=== PATIENT | female | born 1995 | race Two or more races ===

== ENCOUNTER 2018-08-10 21:05 | Emergency (ER) | payer MEDICAID ==
[~2018-08-10] VITALS: Ht 160 cm; Wt 62.6 kg
[2018-08-10 21:22] VITALS: BP 154/94
[2018-08-10] MEDS ORDERED: Metoclopramide 10mg/2ml Inj IVP ONE (21:45)
[2018-08-10] MEDS ORDERED: Meclizine 25mg tab ORAL ONE (21:45)
[2018-08-10 22:29] LABS: APPEARANCE,URINE CLEAR; BILIRUBIN, URINE NEGATIVE (NEGATIVE); COLOR,URINE PALE YELLOW; GLUCOSE, URINE (UA) NEGATIVE (NEGATIVE); KETONES,URINE NEGATIVE (NEGATIVE); LEUKOCYTE ESTERASE ,URINE NEGATIVE (NEGATIVE); NITRITE,URINE NEGATIVE (NEGATIVE); PH,URINE 6.5 (4.5-8.0); PROTEIN,URINE NEGATIVE (NEGATIVE); UROBILINOGEN,URINE NORMAL MG/DL (0.0-1.0)
[2018-08-10 22:46] LABS: BASOPHILS % (AUTO) 1.2 % (0.0-2.0); HEMATOCRIT 39.9 % (37.0-47.0); HEMOGLOBIN 13.3 G/DL (12.0-16.0); LYMPHOCYTES % (AUTO) 29.4 % (20.0-45.0); MEAN CORPUSCULAR VOLUME 81 FL (80-99); MONOCYTES % (AUTO) 6.1 % (1.0-10.0); NEUTROPHILS % (AUTO) 62.5 % (45.0-75.0); PLATELET COUNT 269 K/UL (150-450); RED BLOOD COUNT 4.93 M/UL (4.20-5.40); RED CELL DISTRIBUTION WIDTH 14.7 % (11.6-14.8); WHITE BLOOD COUNT 11.1 K/UL (4.8-10.8)
[2018-08-10 22:47] VITALS: BP 110/65
[2018-08-10 22:49] LABS: ALANINE AMINOTRANSFERASE 27 U/L (12-78); ALBUMIN 4.2 G/DL (3.4-5.0); ALKALINE PHOSPHATASE 69 U/L (46-116); ASPARTATE AMINO TRANSFERASE 15 U/L (15-37); BILIRUBIN,TOTAL 0.2 MG/DL (0.2-1.0); BLOOD UREA NITROGEN 10 mg/dL (7-18); CALCIUM 9.5 MG/DL (8.5-10.1); CHLORIDE 104 MMOL/L (98-107); CREATININE 0.8 MG/DL (0.55-1.30); POTASSIUM 3.7 MMOL/L (3.5-5.1); SODIUM 140 MMOL/L (136-145)
[2018-08-10 22:55] LABS: CARBON DIOXIDE 27 MMOL/L (21-32)
[2018-08-10] MEDS ORDERED: MECLIZINE HCL25 MG ORAL (23:11)
[2018-08-10] MEDS ORDERED: REGLAN10 MG ORAL (23:11)
[2018-08-10 23:26] VITALS: BP 121/80
--- NOTE | 2018-08-11 00:08 | Emergency Room Report ---
History of Present Illness General Chief Complaint: Dizziness Source: Patient Present Illness HPI 22-year-old female presents ED for evaluation. Complaining of dizziness which started tonight. Described as room spinning sensation, worse with sudden head movement. Denies headache. Denies nausea or vomiting. Patient states that there is a family history of vertigo. Denies alcohol or drug use. No other aggravating or relieving factors. Denies any other associated symptoms Allergies: Coded Allergies: No Known Allergies (Unverified , 08/10/18) Patient History Past Medical History: none Past Surgical History: none Pertinent Family History: none Social History: Denies: smoking, alcohol use, drug use Last Menstrual Period: Jul 20, 2018 Now: No Immunizations: UTD Reviewed Nursing Documentation: PMH: Agreed; PSxH: Agreed Nursing Documentation-PMH Past Medical History: No History, Except For Review of Systems All Other Systems: negative except mentioned in HPI Physical Exam Vital Signs Date Time Temp Pulse Resp B/P (MAP) Pulse Ox O2 Delivery O2 Flow Rate FiO2 08/10/18 21:08 98.4 99 16 154/94 100 Room Air 98.4 08/10/18 23:26 99 Sp02 EP Interpretation: reviewed, normal General Appearance: no apparent distress, alert, GCS 15, non-toxic Head: normocephalic, atraumatic Eyes: bilateral eye normal inspection, bilateral eye PERRL ENT: hearing grossly normal, normal pharynx, no angioedema, normal voice Neck: full range of motion, supple/symm/no masses Respiratory: chest non-tender, lungs clear, normal breath sounds, speaking full sentences Cardiovascular #1: regular rate, rhythm, no edema Cardiovascular #2: 2+ carotid (R), 2+ carotid (L), 2+ radial (R), 2+ radial (L) , 2+ dorsalis pedis (R), 2+ dorsalis pedis (L) Gastrointestinal: normal bowel sounds, non tender, soft, non-distended, no guarding, no rebound Rectal: deferred Genitourinary: normal inspection, no CVA tenderness Musculoskeletal: back normal, gait/station normal, normal range of motion, non- tender Neurologic: alert, oriented x3, responsive, motor strength/tone normal, sensory intact, speech normal Psychiatric: judgement/insight normal, memory normal, mood/affect normal, no suicidal/homicidal ideation Reflexes: 3+ bicep (R), 3+ bicep (L), 3+ tricep (R), 3+ tricep (L), 3+ knee (R) , 3+ knee (L) Skin: normal color, no rash, warm/dry, well hydrated Lymphatic: no adenopathy Medical Decision Making Diagnostic Impression: Primary Impression: Benign positional vertigo Qualified Codes: H81.10 - Benign paroxysmal vertigo, unspecified ear ER Course Hospital Course 22-year-old female presents ED complaining of room spinning sensation Differential diagnoses include: arrythmia, dehydration, vertigo, UTI, substance abuse Clinical course Patient placed on stretcher. on cardiac rn. After initial history and physical I ordered labs, EKG, IVFs, meclizine, reglan labs reviewed- no leukocytosis, hemoglobin/hematocrit stable, electrolytes okay , UA negative, UDS negative EKG - sinus tachycardia, no acute ischemic changes interpreted by me Upon reassessment patient states his symptoms have improved. Clinical findings consistent with vertigo. Discussed findings with patient, family. Safe for discharge with close outpatient follow-up I. I feel this is a highly complex case requiring extensive working including EKG/Rhythm strip, Xray/CT/US, Blood/urine lab work, repeat exams while in ED, and administration of strong opiates/narcotics for pain control, admission to hospital or close patient follow up. Diagnosis - benign positional vertigo stable and discharged to home with prescription for meclizine, reglan. Followup with PMD. Return to ED if symptoms recur or worsen Labs Test 08/10/18 22:15 White Blood Count 11.1 K/UL (4.8-10.8) Red Blood Count 4.93 M/UL (4.20-5.40) Hemoglobin 13.3 G/DL (12.0-16.0) Hematocrit 39.9 % (37.0-47.0) Mean Corpuscular Volume 81 FL (80-99) Mean Corpuscular Hemoglobin 26.9 PG (27.0-31.0) Mean Corpuscular Hemoglobin Concent 33.2 G/DL (32.0-36.0) Red Cell Distribution Width 14.7 % (11.6-14.8) Platelet Count 269 K/UL (150-450) Mean Platelet Volume 9.4 FL (6.5-10.1) Neutrophils (%) (Auto) 62.5 % (45.0-75.0) Lymphocytes (%) (Auto) 29.4 % (20.0-45.0) Monocytes (%) (Auto) 6.1 % (1.0-10.0) Eosinophils (%) (Auto) 1.0 % (0.0-3.0) Basophils (%) (Auto) 1.2 % (0.0-2.0) Urine Color Pale yellow Urine Appearance Clear Urine pH 6.5 (4.5-8.0) Urine Specific [place] 1.010 (1.005-1.035) Urine Protein Negative (NEGATIVE) Urine Glucose (UA) Negative (NEGATIVE) Urine Ketones Negative (NEGATIVE) Urine Blood Negative (NEGATIVE) Urine Nitrite Negative (NEGATIVE) Urine Bilirubin Negative (NEGATIVE) Urine Urobilinogen Normal MG/DL (0.0-1.0) Urine Leukocyte Esterase Negative (NEGATIVE) Urine HCG, Qualitative Negative (NEGATIVE) Sodium Level 140 MMOL/L (136-145) Potassium Level 3.7 MMOL/L (3.5-5.1) Chloride Level 104 MMOL/L (98-107) Carbon Dioxide Level 27 MMOL/L (21-32) Blood Urea Nitrogen 10 mg/dL (7-18) Creatinine 0.8 MG/DL (0.55-1.30) Estimat Glomerular Filtration Rate > 60 mL/min (>60) Glucose Level 116 MG/DL (74-106) Calcium Level 9.5 MG/DL (8.5-10.1) Total Bilirubin 0.2 MG/DL (0.2-1.0) Aspartate Amino Transf (AST/SGOT) 15 U/L (15-37) Alanine Aminotransferase (ALT/SGPT) 27 U/L (12-78) Alkaline Phosphatase 69 U/L (46-116) Total Protein 8.2 G/DL (6.4-8.2) Albumin 4.2 G/DL (3.4-5.0) Globulin 4.0 g/dL Albumin/Globulin Ratio 1.0 (1.0-2.7) Urine Opiates Screen Negative (NEGATIVE) Urine Barbiturates Screen Negative (NEGATIVE) Phencyclidine (PCP) Screen Negative (NEGATIVE) Urine Amphetamines Screen Negative (NEGATIVE) Urine Benzodiazepines Screen Negative (NEGATIVE) Urine Cocaine Screen Negative (NEGATIVE) Urine Marijuana (THC) Screen Negative (NEGATIVE) EKG Diagnostic Results Rate: tachycardiac Rhythm: NSR ST Segments: no acute changes ASA given to the pt in ED: No Rhythm Strip Diag. Results EP Interpretation: yes Rhythm: NSR, no PVC's, no ectopy Last Vital Signs Date Time Temp Pulse Resp B/P (MAP) Pulse Ox O2 Delivery O2 Flow Rate FiO2 08/10/18 23:26 97.8 89 16 121/80 99 Room Air 99 Status: improved Disposition: HOME, SELF-CARE Condition: Stable Scripts Metoclopramide Hcl* (REGLAN*) 10 Mg Tablet 10 MG ORAL THREE TIMES A DAY, #20 TAB Prov: Peter Alfaro MD 08/10/18 Meclizine Hcl* (MECLIZINE*) 25 Mg Tablet 25 MG ORAL THREE TIMES A DAY, #20 TAB Prov: Peter Alfaro MD 08/10/18 Patient Instructions: Benign Positional Vertigo Peter Alfaro MD Aug 11, 2018 00:08
--- NOTE | 2018-08-11 14:49 | Cardiology Report ---
APPROVED REPORT EKG Measurement Heart [id number] Sinus tachycardia Possible Left atrial enlargement Borderline ECG
== END 2018-08-10 23:29 | disposition home or self-care (01) ==
LOC: EMR 22:13
DX: H81.10 Benign paroxysmal vertigo, unspecified ear (principal)
CPT/HCPCS: 36415; 80053; 80307; 81003; 81025; 85025; 93005; 96361; 96374; 99284; J2765

== ENCOUNTER 2019-07-29 17:48 | Emergency (ER) | payer MEDICAID ==
[~2019-07-29] VITALS: Ht 160 cm; Wt 70.3 kg
[~2019-07-29 17:48] MED LIST: MECLIZINE HCL25 MG ORAL; REGLAN10 MG ORAL
[2019-07-29] MEDS ORDERED: NKM (17:58)
--- NOTE | 2019-07-29 18:02 | NUR ---
ED Nurse Note: PT WALKED IN TO ER TODAY FROM HOME. AOX4. PT C/O PALPITATIONS AND FAST HEART RATE X 3 DAYS AGO. PT DENIES ANY MEDICAL HISTORY, DRUG OR ALCOHOL USE. PT STATES SHE HAS NOT DONE ANYTHING OUT OF THE ORDINARY AND DENIES ANY ANXIETY. PT DENIES CHEST PAIN OR SOB. AT BEDSIDE, PT IS CALM, COOPERATIVE, AND ANSWERING QUESTIONS APPROPRIATELY. HR 109 WITH BP 137/91. SINUS TACHYCARDIA ON MONITOR. DR HUERTAS AWARE.
[2019-07-29 18:03] VITALS: BP 137/91
[2019-07-29 18:27] LABS: APPEARANCE,URINE CLEAR; BILIRUBIN, URINE NEGATIVE (NEGATIVE); COLOR,URINE PALE YELLOW; GLUCOSE, URINE (UA) NEGATIVE (NEGATIVE); KETONES,URINE 3+ (NEGATIVE); LEUKOCYTE ESTERASE ,URINE 2+ (NEGATIVE); NITRITE,URINE NEGATIVE (NEGATIVE); PH,URINE 7 (4.5-8.0); PROTEIN,URINE NEGATIVE (NEGATIVE); UROBILINOGEN,URINE NORMAL MG/DL (0.0-1.0)
[2019-07-29 18:33] LABS: BASOPHILS % (AUTO) 1.3 % (0.0-2.0); EOSINOPHILS % (AUTO) 0.8 % (0.0-3.0); HEMATOCRIT 40.1 % (37.0-47.0); HEMOGLOBIN 13.1 G/DL (12.0-16.0); LYMPHOCYTES % (AUTO) 27.8 % (20.0-45.0); MEAN CORPUSCULAR VOLUME 82 FL (80-99); MONOCYTES % (AUTO) 6.2 % (1.0-10.0); NEUTROPHILS % (AUTO) 63.8 % (45.0-75.0); PLATELET COUNT 261 K/UL (150-450); RED BLOOD COUNT 4.89 M/UL (4.20-5.40); RED CELL DISTRIBUTION WIDTH 13.5 % (11.6-14.8); WHITE BLOOD COUNT 9.8 K/UL (4.8-10.8)
[2019-07-29 18:49] LABS: ANION GAP 12 mmol/L (5-15); BLOOD UREA NITROGEN 10 mg/dL (7-18); CALCIUM 9.3 MG/DL (8.5-10.1); CARBON DIOXIDE 25 MMOL/L (21-32); CHLORIDE 105 MMOL/L (98-107); CREATININE 0.9 MG/DL (0.55-1.30); POTASSIUM 3.7 MMOL/L (3.5-5.1); SODIUM 142 MMOL/L (136-145)
[2019-07-29 18:54] LABS: ALANINE AMINOTRANSFERASE 25 U/L (12-78); ALBUMIN 4.1 G/DL (3.4-5.0); ALBUMIN/GLOBULIN RATIO 1.1 (1.0-2.7); ALKALINE PHOSPHATASE 60 U/L (46-116); ASPARTATE AMINO TRANSFERASE 20 U/L (15-37); BILIRUBIN,TOTAL 0.3 MG/DL (0.2-1.0)
[2019-07-29 19:01] VITALS: BP 131/87
--- NOTE | 2019-07-29 19:02 | NUR ---
HAND-OFF: REPORT GIVEN TO PATRICIA BARRETT.
--- NOTE | 2019-07-29 19:07 | Emergency Room Report ---
History of Present Illness General Chief Complaint: Palpitations Source: Patient Present Illness HPI 23-year-old female with history of anxiety here complaining of 3 days of intermittent palpitations. Patient reports that she was standing in line to forward her pain that her palpitations started. However reports that she is very active denies calf swelling and tenderness. Denies chest pain shortness of breath. Denies abdominal pain nausea vomiting. Reports that her palpitations get worse as she lays down and feels acidity coming up her throat. Patient reports that this past weekend she consumes a lot of spicy and acidic food as well as more than usual number of alcoholic beverages. Denies smoking tobacco and drug use. Denies dizziness and headache, vision changes, reports that she is beginning to get her usual migraine headache which Excedrin is helping. Patient reports that she consumes 1 cup of coffee every day. Denies urinary symptoms, hematuria, constipation diarrhea, blood in her stool. Denies recent URI symptoms. Patient reports that she recently traveled to [place] however denies sick contact reports that she has history of anxiety however denies any medication intake in the past. Denies suicidal and homicidal ideation. Reports that her sleep and appetite is good. Denies visual and auditory hallucinations, mood swings, impulsivity, grandiosity, and other associated symptoms.LMP 3 wks ago, regular, denying sexual activity. Allergies: Coded Allergies: No Known Allergies (Unverified , 08/10/18) Patient History Past Medical History: see triage record Past Surgical History: unable to obtain Pertinent Family History: none Last Menstrual Period: 07/09/2019 Now: No Immunizations: UTD Reviewed Nursing Documentation: PMH: Agreed; PSxH: Agreed Nursing Documentation-PM Past Medical History: No Stated History Review of Systems All Other Systems: negative except mentioned in HPI Physical Exam Vital Signs Date Time Temp Pulse Resp B/P (MAP) Pulse Ox O2 Delivery O2 Flow Rate FiO2 07/29/19 17:59 98.8 110 18 159/91 (113) 99 Room Air Sp02 EP Interpretation: reviewed, normal General Appearance: no apparent distress, alert, GCS 15, non-toxic Head: normocephalic, atraumatic Eyes: bilateral eye normal inspection, bilateral eye PERRL ENT: hearing grossly normal, normal pharynx, no angioedema, normal voice Neck: full range of motion, supple/symm/no masses Respiratory: chest non-tender, lungs clear, normal breath sounds, no rhonchi, no accessory muscle use, no wheezing, speaking full sentences Cardiovascular #1: regular rate, rhythm, no edema, no murmur, normal capillary refill Cardiovascular #2: 2+ carotid (R), 2+ carotid (L), 2+ radial (R), 2+ radial (L) , 2+ dorsalis pedis (R), 2+ dorsalis pedis (L) Gastrointestinal: normal bowel sounds, non tender, soft, non-distended, no guarding, no rebound Rectal: deferred Genitourinary: normal inspection, no CVA tenderness Musculoskeletal: back normal, gait/station normal, normal range of motion, non- tender, no calf tenderness Neurologic: alert, oriented x3, responsive, motor strength/tone normal, sensory intact, speech normal Psychiatric: judgement/insight normal, memory normal, mood/affect normal, no suicidal/homicidal ideation Skin: no rash Lymphatic: normal inspection, no adenopathy Medical Decision Making PA Attestation All diagnoses and treatment plans were reviewed and discussed with my supervising physician Dr. Del Angel Diagnostic Impression: Primary Impression: Palpitations Additional Impressions: GERD (gastroesophageal reflux disease) Anxiety, generalized UTI (urinary tract infection) ER Course 23-year-old female with history of anxiety here complaining of 3 days of intermittent palpitations. Patient reports that she was standing in line to forward her pain that her palpitations started. However reports that she is very active denies calf swelling and tenderness. Denies chest pain shortness of breath. Denies abdominal pain nausea vomiting. Reports that her palpitations get worse as she lays down and feels acidity coming up her throat. Patient reports that this past weekend she consumes a lot of spicy and acidic food as well as more than usual number of alcoholic beverages. Denies smoking tobacco and drug use. Denies dizziness and headache, vision changes, reports that she is beginning to get her usual migraine headache which Excedrin is helping. Patient reports that she consumes 1 cup of coffee every day. Denies urinary symptoms, hematuria, constipation diarrhea, blood in her stool. Denies recent URI symptoms. Patient reports that she recently traveled to [place] however denies sick contact reports that she has history of anxiety however denies any medication intake in the past. Denies suicidal and homicidal ideation. Reports that her sleep and appetite is good. Denies visual and auditory hallucinations, mood swings, impulsivity, grandiosity, and other associated symptoms.LMP 3 wks ago, regular, denying sexual activity. Ddx considered but are not limited to: generalized anxiety disorder, panic attack, depression with psychotic feature, bipolar disorder, drug overdose, GERD , gastritis, palpitations unspecified, incidental UTI Vital signs: are WNL, pt. is afebrile H&PE are most consistent with: GERD, anxiety, palpitation, incidental UTI ORDERS: chest pain work up, omeprazole, Macrobid ED INTERVENTIONS: NS bolus, pepcid, zofran DISCHARGE: At this time pt. is stable for d/c to home. Will provide printed patient care instructions, and any necessary prescriptions. Care plan and follow up instructions have been discussed with the patient prior to discharge. Advised the patient to follow-up with her primary care provider for management of palpitations and anxiety also follow-up with quality compliance consultant for possible Echo, possible valve abnormality also if worsening symptoms return to the emergency room avoid eating spicy and acidic food EKG Diagnostic Results Rate: tachycardiac ST Segments: no acute changes Other Impression No acute ST changes Chest X-Ray Diagnostic Results Chest X-Ray Diagnostic Results : Chest X-Ray Ordered: Yes # of Views/Limited/Complete: 1 View Indication: Other EP Interpretation: Yes [place] Xray: Interpretation reviewed, by supervising MD, and agrees with findings. Interpretation: no consolidation, no effusion, no pneumothorax Impression: No acute disease Electronically Signed by: Ayaka Tavarez PA-C Last Vital Signs Date Time Temp Pulse Resp B/P (MAP) Pulse Ox O2 Delivery O2 Flow Rate FiO2 07/29/19 19:01 98.4 96 17 131/87 100 Room Air Disposition: HOME, SELF-CARE Condition: Stable Scripts Nitrofurantoin Monohyd/M-Cryst* (MACROBID 100 MG*) 100 Mg Capsule 100 MG ORAL EVERY 12 HOURS for 7 Days, #14 CAP Prov: Ayaka Camargo 07/29/19 Omeprazole (OMEPRAZOLE) 20 Mg Tablet. 20 MG ORAL DAILY, #30 TAB Prov: Ayaka Camargo 07/29/19 Referrals: [facility] (PCP) Patient Instructions: Food Choices for Gastroesophageal Reflux Disease, Adult, Generalized Anxiety Disorder, Urinary Tract Infection, [id number] Additional Instructions: Take your medication as directed avoid spicy and acidic food follow-up with your primary care provider regarding her anxiety and palpitations if symptoms worsen return to the emergency room increase oral hydration. Ayaka Camargo Jul 29, 2019 19:07
[2019-07-29] MEDS ORDERED: OMEPRAZOLE20 M3 ORAL (19:08)
[2019-07-29] MEDS ORDERED: NITROFURANTOIN100 M2 ORAL (19:18)
[2019-07-29 19:23] VITALS: BP 136/82
--- NOTE | 2019-07-29 19:23 | NUR ---
ER DISCHARGE NOTE: Patient is cleared to be discharged per ERMD, pt is aox4, on room air, with stable vital signs. pt was given dc and prescription instructions, pt was able to verbalize understanding, pt id band and iv site removed without complications. pt is able to ambulate with steady gait. pt took all belongings.
--- NOTE | 2019-07-30 11:30 | Diagnostic Imaging Report ---
Indication: Chest pain Comparison: None A single view chest radiograph was obtained. Findings: Cardiomediastinal appearance is within normal limits for age. The lungs are clear. Pulmonary vascularity is appropriate. The diaphragmatic contour is smooth and costophrenic angles are sharp. No pleural effusions are identified. The bones are unremarkable. Impression: No acute findings
--- NOTE | 2019-08-01 15:23 | Cardiology Report ---
APPROVED REPORT EKG Measurement Heart [id number] Sinus tachycardia Possible Left atrial enlargement Borderline ECG
== END 2019-07-29 19:24 | disposition home or self-care (01) ==
LOC: EMR 18:14
DX: F41.9 Anxiety disorder, unspecified (principal); K21.9 Gastro-esophageal reflux disease without esophagitis; R00.2 Palpitations; N39.0 Urinary tract infection, site not specified
CPT/HCPCS: 36415; 71045; 80053; 80307; 80329; 81001; 81025; 84484; 85025; 93005; 96361; 96374; 96375; J2405; S0028; Z7502; 99284